=== PATIENT | female | born 1985 | race Caucasian/White ===

== ENCOUNTER 2016-10-23 03:43 | Emergency (ER) | payer BC ==
[~2016-10-23] VITALS: Ht 180.3 cm; Wt 72.6 kg
--- NOTE | 2016-10-23 04:21 | NUR ---
BB SELF; AMBULAOTRY TO ER BED 10. PT STATES SHE FEELS "LIGHT HEADED, SOB SINCE I WOKE UP" PT AOX4 RR EVEN AND UNLABORED. NO SOB NOTED. NAD NOTED. NO NVD AT THIS TIME. PT GOWNED AND PLACED ON MONTIOR WIATING FOR MD RESENDIZ.
--- NOTE | 2016-10-23 04:27 | NUR ---
DR. BONNER AT BEDSIDE FOR EVAL.
--- NOTE | 2016-10-23 07:28 | NUR ---
pt appears to be calm and relaxed. Easily aroused. VSS. Patient discharged to home in stable condition. Written and verbal after care instructions given. Patient verbalizes understanding of instruction. ambulatory with a steady gait
[2016-10-23 07:30] VITALS: BP 108/68
== END 2016-10-23 07:31 | disposition home or self-care (01) ==
LOC: ER 03:44
DX: F41.9 Anxiety disorder, unspecified (principal); Z98.890 Other specified postprocedural states
CPT/HCPCS: 99284; A4606; Z7610

== ENCOUNTER 2018-05-11 23:21 | Emergency (ER) | payer SELFPAY ==
[~2018-05-11] VITALS: Ht 180.3 cm; Wt 77.1 kg
--- NOTE | 2018-05-11 23:35 | NUR ---
PT CAME TO EMERGENCY DEPT. COMPLAINING OF DIZZINESS. PT BRADYCARDIC IN THE 50S ON THE MONITOR. PT AXO4. RESPIRATIONS EVEN AND UNLABORED. 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 PENDING EVAL FROM ER .
[2018-05-12] MEDS ORDERED: IV NS 0.9% 1,000 ML BAG IV ONE
[2018-05-12 00:10] LABS: BASOPHILS % (AUTO) 0.5 % (0.0-2.0); EOSINOPHILS % (AUTO) 0.8 % (0.0-6.0); HEMATOCRIT 37 % (33-45); HEMOGLOBIN 12.6 g/dL (11.5-14.8); LYMPHOCYTES # (AUTO) 2.5 /CMM (0.8-4.8); LYMPHOCYTES % (AUTO) 34.2 % (20.0-44.0); MEAN CORPUSCULAR HGB CONC 34 g/dl (31.0-36.0); MEAN CORPUSCULAR VOLUME 94 fL (82-100); MONOCYTES # (AUTO) 0.6 /CMM (0.1-1.30); MONOCYTES % (AUTO) 8.5 % (2.0-12.0); NEUTROPHILS # (AUTO) 4.1 /CMM (1.8-8.9); PLATELET COUNT (AUTO) 187 /CMM (150-450); RED BLOOD CELL COUNT(AUTO) 3.93 MIL/uL (4.0-5.2); WHITE BLOOD COUNT (AUTO) 7.3 K/uL (4.3-11.0)
[2018-05-12 00:22] LABS: CALCIUM, SERUM 8.6 mg/dL (8.5-10.1); CREATININE 0.7 mg/dL (0.6-1.3); POTASSIUM 3.8 mmol/L (3.5-5.1)
--- NOTE | 2018-05-12 00:30 | NUR ---
PT RESTING BED, NAD NOTED. WILL CONTINUE TO MONITOR.
--- NOTE | 2018-05-12 01:00 | NUR ---
DONAVON LINDA AT BEDSIDE FOR RE-EVAL.
--- NOTE | 2018-05-12 01:18 | NUR ---
Pt BP 98/42. ER aware.
--- NOTE | 2018-05-12 01:18 | NUR ---
Patient discharged to home in stable condition. Written and verbal after care instructions given. Patient verbalizes understanding of instruction. IV removed. Catheter intact and site benign. Pressure and 4x4 applied to site. No bleeding noted. Pt ambulatory with steady gait.
[2018-05-12 01:22] VITALS: BP 98/42
== END 2018-05-12 01:24 | disposition home or self-care (01) ==
LOC: ER 23:25
DX: R42 Dizziness and giddiness (principal); F41.9 Anxiety disorder, unspecified; F17.200 Nicotine dependence, unspecified, uncomplicated; Z90.89 Acquired absence of other organs; Z60.2 Problems related to living alone
CPT/HCPCS: 36415; 80048; 84702; 85025; 99283; A4606; J7030

== ENCOUNTER 2021-05-24 14:54 | Emergency (ER) | payer OTHER ==
[~2021-05-24] VITALS: Ht 180.3 cm; Wt 72.6 kg
--- NOTE | 2021-05-24 15:03 | NUR ---
[id number] FOR POSS NEAR DROWNING EPISODE. PT FELL OFF [place] TRYING TO SAVE HER DOG, SUBMERGE POSS 3 MINS. C/O MATTI LOWER LEG PAIN. TO ER BED 16, HOOKED TO MONITOR, VSS. CHANGED TO HOSP GOWN, WARM BLANKET PROVIDED. PATIENT AAO x 4. BREATHING EVEN AND UNLABORED. AWAITING MD MARTINEZ
--- NOTE | 2021-05-24 15:04 | NUR ---
DR AMIN AT BEDSIDE
[2021-05-24] MEDS ORDERED: TDAP [DIPH/PERTUSSIS/TET] 0.5 ML VIAL IM ONE ×2 (15:30→15:35)
[2021-05-24 17:27] LABS: BILIRUBIN,URINE NEGATIVE (NEGATIVE); COLOR,URINE YELLOW (YELLOW); LEUKOCYTE ESTERASE ,URINE NEGATIVE (NEGATIVE); NITRITE, URINE NEGATIVE (NEGATIVE); PROTEIN,URINE NEGATIVE (NEGATIVE); UGLUCOSE NEGATIVE (NEGATIVE); UROBILINOGEN,URINE 0.2 EU/dL (0.2)
[2021-05-24 17:35] LABS: BACTERIA,URINE RARE /HPF (None Seen); MUCUS,URINE Few /LPF (None Seen); RBC,URINE 0-2 /HPF (0-2); WBC,URINE 0-2 /HPF (0-3)
--- NOTE | 2021-05-24 17:52 | NUR ---
[employer] OFFICERS AT BEDSIDE UPDATING PATIENT ABOUT HER DOG.
--- NOTE | 2021-05-24 17:59 | NUR ---
Patient discharged to home in stable condition. Written and verbal after care instructions given. Patient verbalizes understanding of instruction.
[2021-05-24 18:00] VITALS: BP 118/74
[2021-05-24] MEDS ORDERED: IBUPROFEN 600 MG TABLET PO ONE (18:00)
== END 2021-05-24 18:00 | disposition home or self-care (01) ==
LOC: ER 14:57
DX: S80.212A Abrasion, left knee, initial encounter (principal); M25.562 Pain in left knee; F41.9 Anxiety disorder, unspecified; F17.200 Nicotine dependence, unspecified, uncomplicated; Z86.79 Personal history of other diseases of the circulatory system; Z60.2 Problems related to living alone; W16.111A Fall into natural body of water striking water surface causing drowning and submersion, initial encounter; Y93.89 Activity, other specified; Y92.89 Other specified places as the place of occurrence of the external cause; Y99.8 Other external cause status
CPT/HCPCS: 73564-TC; 81001; 84703-TC; 90715